=== PATIENT | male | born 1980 | race Hispanic/Latino ===

== ENCOUNTER 2022-04-25 23:46 | Emergency (ER) | payer MEDICAID, SELFPAY ==
[2022-04-25 23:56] VITALS: BP 143/88; PULSE 83; RESP 16; TEMP 36.6; O2SAT 99
--- NOTE | 2022-04-26 01:04 | ED.SKABFB ---
HPI - Skin/Abscess/Foreign Bdy General Chief complaint: Skin/Abscess/Foreign Body Stated complaint: rash, itching groin Time Seen by Provider: 04/26/22 00:02 History of Present Illness HPI narrative: 41-year-old Yoruba-speaking male presents to the emergency room for evaluation of erythema, pruritus and a rash to the glans penis. Patient states he has been experiencing itching for 2 days, and is worse after taking a shower. 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 Patient states he has no concerns for STDs. History was obtained using an court interpreter. Related Data Allergies Allergy/AdvReac Type Severity Reaction Status Date / Time No Known Allergies Allergy Verified 04/26/22 00:02 Review of Systems Review of Systems: CONSTITUTIONAL: Denies fever, chills, or sweats. EYES: Denies visual changes, redness, or discharge. ENT: Denies rhinorrhea, congestion, sore throat, or otalgia. CARDIOVASCULAR: Denies chest pain, palpitations, or edema. RESPIRATORY: Denies cough or dyspnea. GASTROINTESTINAL: Denies abdominal pain, nausea, vomiting, or diarrhea. GENITOURINARY: Denies dysuria or hematuria. SKIN: Reports rash and itching to penis MUSCULOSKELETAL: Denies back pain, joint pain, or myalgia. NEUROLOGIC: Denies headache, numbness, dizziness, or weakness. PSYCHIATRIC: Denies anxiety or depression. Exam Narrative: GENERAL: Well-appearing, well-nourished, no physical limitations, and in no acute distress. HEAD: Normocephalic, atraumatic. EYES: Conjunctivae normal, PERRLA and EOMI. CHEST: Clear to auscultation. No respiratory distress. No wheezes rales or rhonchi. HEART: Regular rate and rhythm. No murmur heard. Normal peripheral pulses. ABDOMEN: Soft, nontender, nondistended, normal active bowel sounds. : See skin SKIN: Erythema with scattered papules to the glans penis extending to the shaft. No purulent drainage. NEURO: No focal deficits. Alert and oriented x3. MAEW. CN's II-XI intact bilaterally, normal gait PSYCH: Cooperative. Normal mood and affect. Course Vital Signs Vital signs: Vital Signs Temperature 36.6 C 04/25/22 23:56 Pulse Rate 83 04/25/22 23:56 Respiratory Rate 16 04/25/22 23:56 Blood Pressure 143/88 H 04/25/22 23:56 Pulse Oximetry 99 04/25/22 23:56 Oxygen Delivery Room Air 04/25/22 23:56 Temperature 36.6 C 04/25/22 23:56 Pulse Rate 83 04/25/22 23:56 Respiratory Rate 16 04/25/22 23:56 Blood Pressure 143/88 H 04/25/22 23:56 Pulse Oximetry 99 04/25/22 23:56 Oxygen Delivery Room Air 04/25/22 23:56 Discharge Plan Discharge Clinical Impression: Balanitis Patient Disposition: Home, Self-Care Condition: Stable Instructions: Antibiotic Form, Patricktis (ED) Patient Language: Yoruba Prescriptions: New terbinafine HCl 250 mg tablet 250 mg PO DAILY Qty: 30 0RF clotrimazole 1 % cream 1 applic topical BID Qty: 45 0RF Follow-up/Referrals: PHYSICIAN NOT ON STAFF,NONSTAFF [Primary Care Provider] - Time of Disposition: 01:24
[2022-04-26 01:12] LABS: Add Urine Microscopic? YES; Appearance Urine Clear (Clear); Bilirubin Urine Negative (Negative); Blood Urine Negative (Negative); Color Urine Light Yellow (Yellow); Glucose Urine UA Negative (Negative); Ketones Urine Negative (Negative); Leukocyte Esterase Ur Trace LEU/UL (Negative); Nitrate Urine Negative (Negative); Protein Urine Negative (Negative); Urobilinogen Urine 0.2 mg/dL (<2.0); pH Urine 7.5 (5.0-9.0)
[2022-04-26 01:17] LABS: Mucus Urine Rare /lpf; RBC Urine 0-2 /hpf (0-2); WBC Urine 0-3 /hpf
[2022-04-26 01:20] LABS: Alanine Aminotransferase 36 U/L (6-50); Albumin Level 4.5 g/dL (3.5-5.1); Alkaline Phosphatase 122 U/L (38-126); Anion Gap 7 mmol/L (8-16); Aspartate Amino Transferase 38 U/L (17-59); Bilirubin,Total 0.3 mg/dL (0.2-1.3); Blood Urea Nitrogen 17 mg/dL (9-20); Calcium 8.6 mg/dL (8.4-10.2); Carbon Dioxide 26 mmol/L (22-30); Chloride 105 mmol/L (98-107); Estimated CRCL calculation 138 ml/min; Estimated Glomerular Filt Rate > 60; Glucose 113 mg/dL (65-110); Potassium 3.9 mmol/L (3.4-5.0); Sodium 138 mmol/L (137-145)
== END 2022-04-26 01:36 | disposition home or self-care (01) ==
PROVIDERS: Emergency Provider Nurse Practitioner Family
DX: N48.1 Balanitis (principal)
CPT/HCPCS: 36415; 80053; 81001; 99283

== ENCOUNTER 2022-09-19 11:18 | Emergency (ER) | payer MEDICAID, SELFPAY ==
--- NOTE | ~2022-09-19 | CT_ITS ---
EXAMINATION: CT brain wo con DATE: 09/19/2022 12:00 INDICATION: Head injury. TECHNIQUE: Computed tomography (CT) of the head was performed without intravenous contrast. The mA wa s adjusted according to patient size. Iterative reconstruction technique was employed. The dose-lengt h product was 605.33 mGy-cm. COMPARISON: None FINDINGS: There is no intracranial hemorrhage, acute infarction, or abnormal intracranial mass lesion . The ventricles are normal in size. The orbits are normal. There is mild mucosal thickening in the p aranasal sinuses. The mastoid air cells are normal. There is a left anterosuperior scalp laceration. IMPRESSION: 1. Normal brain. Reviewed, dictated and finalized at location A. IMPRESSION: 1. Normal brain.
[2022-09-19 11:25] VITALS: BP 131/79; PULSE 82; RESP 16; TEMP 36.8; O2SAT 100
--- NOTE | 2022-09-19 13:10 | ED.GENADULT ---
HPI - General Adult General Chief complaint: Wound/Laceration Stated complaint: fall, head lac Time Seen by Provider: 09/19/22 11:33 Source: patient and translator and interpreter Mode of arrival: ambulatory Limitations: no limitations History of Present Illness HPI narrative: This is a 42-year-old male who presents to the ED with chief complaint of a head injury that occurred last night. Patient states he was up on a ladder in his home try to get something on a shelf. He fell off and hit his head on a chair below. He denies any LOC. He is not on blood thinners. He does note neurologic complaints. He reports a laceration to the head. States he did not notice the laceration until this morning. Overall it has been over 12 hours since the laceration occurred. Denies fevers, chills, numbness, weakness. Denies any further site of pain or injury. Related Data Home Medications Medication Instructions Recorded Confirmed No Home Medications 09/19/22 09/19/22 Allergies Allergy/AdvReac Type Severity Reaction Status Date / Time No Known Allergies Allergy Verified 09/19/22 11:28 Review of Systems Review of Systems: CONSTITUTIONAL: Denies fever, chills, or sweats. EYES: Denies visual changes, redness, or discharge. ENT: Denies rhinorrhea, congestion, sore throat, or otalgia. CARDIOVASCULAR: Denies chest pain, palpitations, or edema. RESPIRATORY: Denies cough or dyspnea. GASTROINTESTINAL: Denies abdominal pain, nausea, vomiting, or diarrhea. GENITOURINARY: Denies dysuria or hematuria. SKIN: See HPI MUSCULOSKELETAL: Denies back pain, joint pain, or myalgia. NEUROLOGIC: See HPI PSYCHIATRIC: Denies anxiety or depression. Exam Narrative: GENERAL: Well-appearing, well-nourished, and in no acute distress. HEAD: Normocephalic, atraumatic. EYES: PERRLA and EOMI. ENT: Nares clear, no rhinorrhea or epistaxis. Mucous membranes moist. Oropharynx without tonsillar hypertrophy exudate or other lesions. NECK: Supple. No adenopathy or masses. CHEST: No respiratory distress. Clear to auscultation. No wheezes rales or rhonchi HEART: Regular rate and rhythm. No murmur heard. Normal peripheral pulses. ABDOMEN: Soft, nontender, nondistended, normal active bowel sounds. MSK: Normal range of motion. No edema. SKIN: There is a 4 cm laceration to the left frontal scalp. No overt contamination. No active bleeding. Warm, dry, no rash. NEURO: Alert and oriented x3. No focal deficits. PSYCH: Normal mood and affect. Course Vital Signs Vital signs: Vital Signs Temperature 98.2 F 09/19/22 11:25 Pulse Rate 82 09/19/22 11:25 Respiratory Rate 16 09/19/22 11:25 Blood Pressure 131/79 09/19/22 11:25 Pulse Oximetry 100 09/19/22 11:25 Oxygen Delivery Room Air 09/19/22 11:25 Temperature 98.2 F 09/19/22 11:25 Pulse Rate 82 09/19/22 11:25 Respiratory Rate 16 09/19/22 11:25 Blood Pressure 131/79 09/19/22 11:25 Pulse Oximetry 100 09/19/22 11:25 Oxygen Delivery Room Air 09/19/22 11:25 Medical Decision Making [facility] Narrative Medical decision making narrative: This is a 42-year-old male who presents to the ED with chief complaint of head laceration that occurred yesterday evening. This happened well over 12 hours before arriving to the emergency department today. His vitals are stable. Exam reveals a 4 cm laceration to the left frontal scalp. Bleeding controlled. I was able to irrigate the wound very well. He was given topical antibiotics. Decided to let this close by secondary intention as the risk of infection is too high given how long it has been since the injury occurred. His CT scan is negative for any acute findings intracranially. He will be discharged in stable condition. Wound care discussed and return precautions were given. Patient is understanding and agreeable with the plan for discharge. Vital Signs Vital Signs: Vital Signs Temperature 98.2 F 09/19/22 11:25 Pulse Rate 82 05/
== END 2022-09-19 13:25 | disposition home or self-care (01) ==
PROVIDERS: Emergency Provider Physician Assistant
DX: S01.01XA Laceration without foreign body of scalp, initial encounter (principal); W11.XXXA Fall on and from ladder, initial encounter; Y92.009 Unspecified place in unspecified non-institutional (private) residence as the place of occurrence of the external cause
CPT/HCPCS: 70450; 99284